=== PATIENT | female | born 1930 | race Caucasian/White ===

== ENCOUNTER → 2016-10-09 | Outpatient (CLI) | payer MEDICARE, OTHER ==
[~2016-10-09] VITALS: Ht 154.9 cm; Wt 88.0 kg
[~2016-10-09] MED LIST: ACET-2635 PO; ALBU8.5H PO; AMLO-511 PO; ASPI-1093 PO; ATOR40TA28 PO; DICL2100G TP; DIPH1TAB PO; DOCU250C91 PO; FERROUS SULFATE PO; FLUT16H NASAL; FURO20TA4 PO; ISOS60TA4 PO; LEVO50 PO; LINA5TAB PO; LORA10TA60 PO; LOSA50TA37 PO; METO-325 PO; NITR.4 SL; OMEP20 PO; TRAM50TA4 PO; [UNRECOGNIZED DRUG - CODE] PO
[2016-10-09 10:37] VITALS: BP 145/71
== END | disposition home or self-care (01) ==
LOC: SRCNTR 10:24
PROVIDERS: ATTEND Internal Medicine Cardiovascular Disease
DX: J44.9 Chronic obstructive pulmonary disease, unspecified (principal); I12.9 Hypertensive chronic kidney disease with stage 1 through stage 4 chronic kidney disease, or unspecified chronic kidney disease; N18.3 Chronic kidney disease, stage 3 (moderate); I25.10 Atherosclerotic heart disease of native coronary artery without angina pectoris; I35.0 Nonrheumatic aortic (valve) stenosis; E11.9 Type 2 diabetes mellitus without complications; E78.5 Hyperlipidemia, unspecified; M19.90 Unspecified osteoarthritis, unspecified site
CPT/HCPCS: G0463

== ENCOUNTER → 2016-10-21 | Outpatient (CLI) | payer MEDICARE, OTHER ==
[~2016-10-21] VITALS: Ht 154.9 cm; Wt 88.0 kg
[~2016-10-21] MED LIST changes: -[UNRECOGNIZED DRUG - CODE] PO
[2016-10-21 11:33] VITALS: BP 151/73
[2016-10-21 14:46] LABS: GLUCOSE COMMENT 1 Doctor Notified; GLUCOSE,POINT OF CARE 90 MG/DL (70-110)
== END | disposition home or self-care (01) ==
LOC: SRCNTR 10:47
PROVIDERS: ATTEND Hospitalist
DX: J44.9 Chronic obstructive pulmonary disease, unspecified (principal); E11.9 Type 2 diabetes mellitus without complications; I10 Essential (primary) hypertension; I25.10 Atherosclerotic heart disease of native coronary artery without angina pectoris; I35.0 Nonrheumatic aortic (valve) stenosis; E78.5 Hyperlipidemia, unspecified
CPT/HCPCS: 82962; G0463

== ENCOUNTER → 2016-11-13 | Outpatient (CLI) | payer MEDICARE, OTHER ==
[2016-11-13 12:22] LABS: BASOPHILS # (AUTO) 0.04 K/uL (0.00-0.20); BASOPHILS % (AUTO) 0.5 % (0.0-2.0); EOSINOPHILS # (AUTO) 0.22 K/uL (0.00-0.70); EOSINOPHILS % (AUTO) 2.95 % (1.0-6.0); HEMATOCRIT 29.4 % (36-46); HEMOGLOBIN 9.4 g/dL (12.0-16.0); LYMPHOCYTES # (AUTO) 2.1 K/uL (1.0-4.8); LYMPHOCYTES % (AUTO) 27.1 % (22.0-44.0); MEAN CORPUSCULAR HEMOGLOBIN 25.9 pg (26.0-34.0); MEAN CORPUSCULAR HGB CONC 31.9 G/dL (31.0-37.0); MEAN CORPUSCULAR VOLUME 81 fL (80-100); MONOCYTES # (AUTO) 0.4 K/uL (0.1-1.0); MONOCYTES % (AUTO) 4.9 % (2.0-9.0); NEUTROPHILS # (AUTO) 4.9 K/uL (1.8-7.7); NEUTROPHILS % (AUTO) 64.6 % (40.0-70.0); PLATELET COUNT (AUTO) 221 K/uL (150-450); RED BLOOD CELL COUNT(AUTO) 3.63 MIL/uL (4.00-5.20); RED CELL DISTRIBUTION WIDTH 18.8 % (11.5-14.5); WHITE BLOOD COUNT (AUTO) 7.6 K/uL (4.5-11.0)
[2016-11-13 12:24] LABS: RBC MORPHOLOGY COMMENT ABNORMAL RBC MORPH
[2016-11-13 12:53] LABS: APPEARANCE,URINE CLEAR (CLEAR); GLUCOSE, URINE (UA) NEGATIVE (NEGATIVE); KETONES,URINE NEGATIVE (NEGATIVE); LEUKOCYTE ESTERASE ,URINE NEGATIVE (NEGATIVE); OCCULT BLOOD,URINE NEGATIVE (NEGATIVE); PH,URINE 5.5 (5.0-8.0); PROTEIN,URINE POS 1+ (NEGATIVE)
[2016-11-13 12:59] LABS: ADD UA MICROSCOPIC YES; RBC,URINE None Seen /HPF (0-2); SQUAMOUS EPITHELIAL CELL,UR Few /LPF (None Seen); WBC,URINE 0-2 /HPF (0-5)
[2016-11-13 13:24] LABS: HEMOGLOBIN A1C 6.3 % (4.5-6.2)
[2016-11-13 13:37] LABS: ALBUMIN 3.6 g/dL (3.4-5.0); BILIRUBIN,TOTAL 0.4 mg/dL (0.1-1.0); CHOL/HDL RATIO 2.7 (3.9-5.7); CREATININE 1.6 mg/dL (0.60-1.30); THYROID STIMULATING HORMONE 7.49 uIU/mL (0.36-3.74); TOTAL PROTEIN, SERUM 8.1 g/dL (6.4-8.2)
== END | disposition home or self-care (01) ==
LOC: LABPV 10:16
PROVIDERS: ATTEND Hospitalist
DX: J44.9 Chronic obstructive pulmonary disease, unspecified (principal); E11.9 Type 2 diabetes mellitus without complications; I10 Essential (primary) hypertension
CPT/HCPCS: 82271; 82607; 82746; 83036; 84439; 84443; 87086

== ENCOUNTER → 2016-12-09 | Outpatient (CLI) | payer MEDICARE, OTHER, MEDICAID ==
[~2016-12-09] VITALS: Ht 154.9 cm; Wt 89.0 kg
[2016-12-09 10:48] VITALS: BP 112/60
== END | disposition home or self-care (01) ==
LOC: SRCNTR 10:46
PROVIDERS: ATTEND Internal Medicine Cardiovascular Disease
DX: I12.9 Hypertensive chronic kidney disease with stage 1 through stage 4 chronic kidney disease, or unspecified chronic kidney disease (principal); N18.3 Chronic kidney disease, stage 3 (moderate); E11.9 Type 2 diabetes mellitus without complications; I25.10 Atherosclerotic heart disease of native coronary artery without angina pectoris; J44.9 Chronic obstructive pulmonary disease, unspecified; E78.5 Hyperlipidemia, unspecified; M19.90 Unspecified osteoarthritis, unspecified site; E03.9 Hypothyroidism, unspecified; D64.9 Anemia, unspecified; I35.0 Nonrheumatic aortic (valve) stenosis
CPT/HCPCS: G0463

== ENCOUNTER → 2016-12-26 | Outpatient (CLI) | payer MEDICARE, OTHER ==
[~2016-12-26] VITALS: Ht 152.4 cm; Wt 89.5 kg
[2016-12-26 10:49] VITALS: BP 160/64
[2016-12-26 11:11] LABS: GLUCOSE,POINT OF CARE 104 MG/DL (70-110)
== END | disposition home or self-care (01) ==
LOC: SRCNTR 10:45
PROVIDERS: ATTEND Hospitalist
DX: J44.9 Chronic obstructive pulmonary disease, unspecified (principal); I10 Essential (primary) hypertension; E11.65 Type 2 diabetes mellitus with hyperglycemia; E78.5 Hyperlipidemia, unspecified; I25.10 Atherosclerotic heart disease of native coronary artery without angina pectoris; I35.0 Nonrheumatic aortic (valve) stenosis
CPT/HCPCS: 82962; G0463

== ENCOUNTER → 2017-03-14 | Outpatient (CLI) | payer MEDICARE, OTHER ==
[~2017-03-14] VITALS: Ht 152.4 cm; Wt 89.5 kg
[~2017-03-14] MED LIST changes: +ACET-48 PO; +ALBU8.5H IH; +AMLO5TAB66 PO; +FERR-89 PO; +FLUT1DIS3 IH; +FOLI1TAB15 PO; +IBUP-2070 PO; +METO-323 PO; +PIOG30TA2 PO; +PYRI50TA PO; +SITA50 PO; +VALS160T2 PO; +VALS320T2 PO; +[UNRECOGNIZED DRUG - CODE] PO
[2017-03-14 10:23] VITALS: BP 133/47
== END | disposition home or self-care (01) ==
LOC: SRCNTR 10:19
PROVIDERS: ATTEND Internal Medicine Cardiovascular Disease
DX: J44.9 Chronic obstructive pulmonary disease, unspecified (principal); E11.9 Type 2 diabetes mellitus without complications; E78.5 Hyperlipidemia, unspecified; I10 Essential (primary) hypertension; I25.10 Atherosclerotic heart disease of native coronary artery without angina pectoris; I35.0 Nonrheumatic aortic (valve) stenosis; M19.90 Unspecified osteoarthritis, unspecified site; Z79.82 Long term (current) use of aspirin
CPT/HCPCS: G0463

== ENCOUNTER → 2017-03-24 | Outpatient (CLI) | payer MEDICARE, OTHER ==
[~2017-03-24] VITALS: Ht 152.4 cm; Wt 88.7 kg
[~2017-03-24] MED LIST changes: -ACET-48 PO; -ALBU8.5H IH; -AMLO5TAB66 PO; -FERR-89 PO; -FLUT1DIS3 IH; -FOLI1TAB15 PO; -IBUP-2070 PO; -METO-323 PO; -PIOG30TA2 PO; -PYRI50TA PO; -SITA50 PO; -VALS160T2 PO; -VALS320T2 PO; -[UNRECOGNIZED DRUG - CODE] PO
[2017-03-24 11:13] VITALS: BP 131/65
[2017-03-24 13:52] LABS: GLUCOSE,POINT OF CARE 133 MG/DL (70-110)
== END | disposition home or self-care (01) ==
LOC: SRCNTR 11:11
PROVIDERS: ATTEND Hospitalist
DX: I10 Essential (primary) hypertension (principal); E03.9 Hypothyroidism, unspecified; E78.5 Hyperlipidemia, unspecified; M19.90 Unspecified osteoarthritis, unspecified site
CPT/HCPCS: 82962; G0463

== ENCOUNTER → 2017-05-16 | Outpatient (CLI) | payer MEDICARE, OTHER ==
[~2017-05-16] VITALS: Ht 152.4 cm; Wt 89.0 kg
[2017-05-16 11:15] VITALS: BP 118/44
== END | disposition home or self-care (01) ==
LOC: SRCNTR 11:14
PROVIDERS: ATTEND Internal Medicine Cardiovascular Disease
DX: J44.9 Chronic obstructive pulmonary disease, unspecified (principal); E11.9 Type 2 diabetes mellitus without complications; E78.5 Hyperlipidemia, unspecified; I10 Essential (primary) hypertension; I25.10 Atherosclerotic heart disease of native coronary artery without angina pectoris; M19.90 Unspecified osteoarthritis, unspecified site; I35.0 Nonrheumatic aortic (valve) stenosis; Z79.82 Long term (current) use of aspirin
CPT/HCPCS: G0463

== ENCOUNTER → 2017-05-29 | Outpatient (CLI) | payer MEDICARE, OTHER ==
[~2017-05-29] VITALS: Ht 152.4 cm; Wt 88.5 kg
[~2017-05-29] MED LIST changes: -ALBU8.5H PO; +ALBU8.5H8 PO; -ASPI-1093 PO; +ASPI-1182 PO; +INFLUENZA VIRUS VACCINE QVS 2017-18 (3YR+)/PF 60 MCG/0.5 ML SYRINGE IM ONE; -METO-325 PO; +METO-558 PO
[2017-05-29 11:55] VITALS: BP 141/60
[2017-05-29 13:22] LABS: GLUCOSE,POINT OF CARE 98 MG/DL (70-110)
== END | disposition home or self-care (01) ==
LOC: SRCNTR 11:07
PROVIDERS: ATTEND Hospitalist
DX: E11.65 Type 2 diabetes mellitus with hyperglycemia (principal); I10 Essential (primary) hypertension; E78.5 Hyperlipidemia, unspecified; I25.10 Atherosclerotic heart disease of native coronary artery without angina pectoris; J44.9 Chronic obstructive pulmonary disease, unspecified; I35.0 Nonrheumatic aortic (valve) stenosis
CPT/HCPCS: 82962; 90471 ×2; 96372; G0463

== ENCOUNTER → 2017-06-04 | Outpatient (CLI) | payer MEDICARE, OTHER ==
[~2017-06-04] MED LIST changes: -INFLUENZA VIRUS VACCINE QVS 2017-18 (3YR+)/PF 60 MCG/0.5 ML SYRINGE IM ONE; -METO-558 PO; +METO50TA12 PO
[2017-06-04 15:06] LABS: BASOPHILS # (AUTO) 0.07 K/uL (0.00-0.20); BASOPHILS % (AUTO) 0.8 % (0.0-2.0); EOSINOPHILS # (AUTO) 0.24 K/uL (0.00-0.70); EOSINOPHILS % (AUTO) 2.78 % (1.0-6.0); HEMATOCRIT 32.2 % (36-46); HEMOGLOBIN 10.5 g/dL (12.0-16.0); LYMPHOCYTES # (AUTO) 2.3 K/uL (1.0-4.8); LYMPHOCYTES % (AUTO) 26.9 % (22.0-44.0); MEAN CORPUSCULAR HEMOGLOBIN 26.6 pg (26.0-34.0); MEAN CORPUSCULAR HGB CONC 32.6 G/dL (31.0-37.0); MEAN CORPUSCULAR VOLUME 81 fL (80-100); MONOCYTES # (AUTO) 0.4 K/uL (0.1-1.0); NEUTROPHILS # (AUTO) 5.5 K/uL (1.8-7.7); NEUTROPHILS % (AUTO) 64.6 % (40.0-70.0); PLATELET COUNT (AUTO) 253 K/uL (150-450); RED BLOOD CELL COUNT(AUTO) 3.96 MIL/uL (4.00-5.20); RED CELL DISTRIBUTION WIDTH 16.8 % (11.5-14.5); WHITE BLOOD COUNT (AUTO) 8.5 K/uL (4.5-11.0)
[2017-06-04 15:20] LABS: ALBUMIN 3.7 g/dL (3.4-5.0); BILIRUBIN,TOTAL 0.2 mg/dL (0.1-1.0); CALCIUM, TOTAL 9.3 mg/dL (8.8-10.5); CREATININE 1.79 mg/dL (0.60-1.30); POTASSIUM 5.1 mmol/L (3.5-5.1); THYROID STIMULATING HORMONE 2.9 uIU/mL (0.36-3.74); TOTAL PROTEIN, SERUM 8.6 g/dL (6.4-8.2)
[2017-06-04 17:55] LABS: HEMOGLOBIN A1C 6.2 % (4.5-6.2)
== END | disposition home or self-care (01) ==
LOC: LABPV 12:14
PROVIDERS: ATTEND Hospitalist
DX: E11.9 Type 2 diabetes mellitus without complications (principal); E78.5 Hyperlipidemia, unspecified; I10 Essential (primary) hypertension
CPT/HCPCS: 82271; 83036; 84439; 84443

== ENCOUNTER → 2017-07-24 | Outpatient (CLI) | payer MEDICARE, OTHER ==
[~2017-07-24] VITALS: Ht 154.9 cm; Wt 88.0 kg
[~2017-07-24] MED LIST changes: +METO-558 PO; -METO50TA12 PO
[2017-07-24 12:33] VITALS: BP 143/54
[2017-07-24 13:07] LABS: GLUCOMETER DEV NAME(LOC) SHC; GLUCOSE,POINT OF CARE 110 MG/DL (70-110)
== END | disposition home or self-care (01) ==
LOC: SRCNTR 12:24
PROVIDERS: ATTEND Hospitalist
DX: E11.65 Type 2 diabetes mellitus with hyperglycemia (principal); E78.5 Hyperlipidemia, unspecified; I10 Essential (primary) hypertension; I25.10 Atherosclerotic heart disease of native coronary artery without angina pectoris; J44.9 Chronic obstructive pulmonary disease, unspecified; R32 Unspecified urinary incontinence; E03.9 Hypothyroidism, unspecified; I35.0 Nonrheumatic aortic (valve) stenosis
CPT/HCPCS: 82962; G0463

== ENCOUNTER → 2017-07-28 | Outpatient (CLI) | payer MEDICARE, OTHER ==
[~2017-07-28] VITALS: Ht 154.9 cm; Wt 88.0 kg
[2017-07-28 11:08] VITALS: BP 139/55
== END | disposition home or self-care (01) ==
LOC: SRCNTR 10:42
PROVIDERS: ATTEND Internal Medicine Cardiovascular Disease
DX: I10 Essential (primary) hypertension (principal); E11.9 Type 2 diabetes mellitus without complications; E78.5 Hyperlipidemia, unspecified; I25.10 Atherosclerotic heart disease of native coronary artery without angina pectoris; J44.9 Chronic obstructive pulmonary disease, unspecified; Z79.82 Long term (current) use of aspirin; M19.90 Unspecified osteoarthritis, unspecified site
CPT/HCPCS: G0463

== ENCOUNTER → 2017-10-03 | Outpatient (CLI) | payer MEDICARE, OTHER ==
[~2017-10-03] VITALS: Ht 154.9 cm; Wt 87.0 kg
[2017-10-03 10:45] VITALS: BP 148/63
== END | disposition home or self-care (01) ==
LOC: SRCNTR 10:44
PROVIDERS: ATTEND Internal Medicine Cardiovascular Disease
DX: I25.10 Atherosclerotic heart disease of native coronary artery without angina pectoris (principal); I10 Essential (primary) hypertension; E11.9 Type 2 diabetes mellitus without complications; E78.5 Hyperlipidemia, unspecified; J44.9 Chronic obstructive pulmonary disease, unspecified; M25.562 Pain in left knee; M25.561 Pain in right knee; M25.571 Pain in right ankle and joints of right foot; M19.90 Unspecified osteoarthritis, unspecified site; I35.0 Nonrheumatic aortic (valve) stenosis; Z79.82 Long term (current) use of aspirin
CPT/HCPCS: G0463

== ENCOUNTER → 2018-02-11 | Outpatient (CLI) | payer MEDICARE, OTHER ==
[~2018-02-11] VITALS: Ht 152.4 cm; Wt 89.0 kg
[2018-02-11 11:15] VITALS: BP 158/53
== END | disposition home or self-care (01) ==
LOC: SRCNTR 10:30
PROVIDERS: ATTEND Internal Medicine Cardiovascular Disease
DX: I10 Essential (primary) hypertension (principal); E78.5 Hyperlipidemia, unspecified; E11.9 Type 2 diabetes mellitus without complications; I25.10 Atherosclerotic heart disease of native coronary artery without angina pectoris; I35.0 Nonrheumatic aortic (valve) stenosis; M19.90 Unspecified osteoarthritis, unspecified site; J44.9 Chronic obstructive pulmonary disease, unspecified; Z79.82 Long term (current) use of aspirin
CPT/HCPCS: G0463

== ENCOUNTER → 2018-07-27 | Outpatient (CLI) | payer MEDICARE, OTHER ==
[~2018-07-27] VITALS: Ht 152.4 cm; Wt 85.0 kg
[~2018-07-27] MED LIST changes: +HYDR25TA84 PO; -LOSA50TA37 PO
[2018-07-27 11:33] VITALS: BP 142/82
== END | disposition home or self-care (01) ==
LOC: SRCNTR 11:19
PROVIDERS: ATTEND Internal Medicine Cardiovascular Disease
DX: I11.0 Hypertensive heart disease with heart failure (principal); I50.9 Heart failure, unspecified; E11.9 Type 2 diabetes mellitus without complications; E78.5 Hyperlipidemia, unspecified; I35.0 Nonrheumatic aortic (valve) stenosis; J44.9 Chronic obstructive pulmonary disease, unspecified; F32.9 Major depressive disorder, single episode, unspecified; M19.90 Unspecified osteoarthritis, unspecified site; I25.10 Atherosclerotic heart disease of native coronary artery without angina pectoris
CPT/HCPCS: G0463

== ENCOUNTER → 2018-09-23 | Outpatient (CLI) | payer MEDICARE, OTHER ==
[~2018-09-23] VITALS: Ht 152.4 cm; Wt 83.0 kg
[~2018-09-23] MED LIST changes: +SERT50TA12 PO
[2018-09-23 10:46] VITALS: BP 139/52
== END | disposition home or self-care (01) ==
LOC: SRCNTR 10:39
PROVIDERS: ATTEND Internal Medicine Cardiovascular Disease
DX: E78.5 Hyperlipidemia, unspecified (principal); I13.0 Hypertensive heart and chronic kidney disease with heart failure and stage 1 through stage 4 chronic kidney disease, or unspecified chronic kidney disease; E11.22 Type 2 diabetes mellitus with diabetic chronic kidney disease; N18.9 Chronic kidney disease, unspecified; I50.9 Heart failure, unspecified; I35.0 Nonrheumatic aortic (valve) stenosis; I25.10 Atherosclerotic heart disease of native coronary artery without angina pectoris; J44.9 Chronic obstructive pulmonary disease, unspecified; M19.90 Unspecified osteoarthritis, unspecified site
CPT/HCPCS: G0463

== ENCOUNTER → 2018-11-25 | Outpatient (CLI) | payer MEDICARE, OTHER ==
[~2018-11-25] VITALS: Ht 154.9 cm; Wt 85.0 kg
[2018-11-25 10:41] VITALS: BP 158/53
== END | disposition home or self-care (01) ==
LOC: SRCNTR 10:30
PROVIDERS: ATTEND Internal Medicine Cardiovascular Disease
DX: E78.5 Hyperlipidemia, unspecified (principal); I49.9 Cardiac arrhythmia, unspecified; I10 Essential (primary) hypertension; E11.9 Type 2 diabetes mellitus without complications; I25.10 Atherosclerotic heart disease of native coronary artery without angina pectoris; J44.9 Chronic obstructive pulmonary disease, unspecified; M19.90 Unspecified osteoarthritis, unspecified site
CPT/HCPCS: G0463